=== PATIENT | male | born 1980 | race Caucasian/White ===

== ENCOUNTER 2023-03-12 00:50 | Day surgery (SDC) | payer BC, SELFPAY ==
--- NOTE | 2023-03-09 09:22 | SUR.PREOP ---
Patient called regarding upcoming procedure. Reviewed preop instructions, appointment times, and procedure prep.
[2023-03-12 09:05] VITALS: BP 117/87; PULSE 94; RESP 18; TEMP 36.5; O2SAT 99; BMI 30.4
[2023-03-12] MEDS: LACTATED RINGERS 1,000 ML 150 ML IV CONT (09:28)
--- NOTE | 2023-03-12 09:41 | WPDANESEPPF ---
Anes - Initial Pre Proc Eval Procedure: Operation Date: 03/12/23 10:00 Proposed Procedures p Colonoscopy - Ayo Regalado MD Date/Time: 03/12/23 09:41 Surgeon: Ayo Regalado MD Pre Op Diagnosis: diarrhea unspecified, hemorrhage of anus/rectum Patient Data Age: 43 Gender: M Height: 1.78 m Weight: 96.1 kg Last Vital Signs Temp 97.7 F 03/12/23 09:05 Pulse 94 03/12/23 09:05 Resp 18 03/12/23 09:05 BP 117/87 03/12/23 09:05 Pulse Ox 99 03/12/23 09:05 O2 Del Method Room Air 03/12/23 09:05 Allergies Allergy/AdvReac Type Severity Reaction Status Date / Time prochlorperazine Allergy Severe Anaphylaxis Verified 03/12/23 09:16 [From Compazine] Home Medications Medication Instructions Recorded Confirmed Type escitalopram oxalate 20 mg tablet 20 mg PO DAILY 01/22/23 03/12/23 History (Lexapro) naproxen sodium 220 mg capsule 220 mg PO BID PRN Pain (Scale 01/22/23 03/12/23 History (Aleve) Score 1-3) quetiapine 25 mg tablet (Seroquel) 25 mg PO QHS 01/22/23 03/12/23 History Patient hx anesthesia problems: none Family hx anesthesia problems: none Results Review: All pre-operative results and documents have been reviewed as part of the pre-operative evaluation. [facility] Past Medical History Medical History Bright red blood per rectum Diarrhea Tobacco use Social History Social History Smoking packs per day: 1 Smoking cigarettes per day: 20.0 Years smoked: 20 Smoking pack-years: 20.00 Smoking status: Current every day smoker Tobacco type: cigarettes Substance use: never Substance use type: does not use Living arrangements: alone Spiritual care concerns: No Anes - Eval Final PreProcedure Day of Procedure 03/12/23 09:41 Patient weight: obese Heart: regular rate and rhythm Lungs: clear to auscultation Airway: Mallampati scale class II Neurological: alert and oriented Last oral intake: >/= 8 hours ASA classification: II Emergent: no Anesthetic plan: proceed Anesthesia type and monitoring: general GIVS and standard monitoring Results Review: All pre-operative results and documents have been reviewed as part of the pre-operative evaluation. Informed Consent: The patient's anesthetic plan and its attendant risks and benefits were discussed with the patient/family/POA. Questions were solicited and answers provided to the satisfaction of the patient/family/POA.
--- NOTE | 2023-03-12 09:57 | PM.HPGS ---
History of Present Illness History of Present Illness Consent: Risks, benefits, and alternatives have been discussed and questions answered. Patient agrees to proceed with procedure. Chief complaint: diarrhea unspecified, hemorrhage of anus/rectum Narrative: Ranjeet Barboza is a 43 year old male with intermittent diarrhea for few years, he is not taking any medication. Had colonoscopy 2014 with ? colitis. Recent stool samples negative for infection, normal calprotectin. Review of Systems Constitutional: Constitutional: Denies headache(s) and Denies weakness Eyes: Eyes: Denies blurry vision ENT: Reports Normal hearing present, Denies headache(s) and Denies neck pain Cardiovascular: Cardiovascular: Denies chest pain and Denies dyspnea Respiratory: Respiratory: Denies dyspnea Gastrointestinal: Gastrointestinal: Reports no additional gastrointestinal complaints Genitourinary: Genitourinary: Denies dysuria Musculoskeletal: Musculoskeletal: Denies neck pain Integumentary/Breasts: Skin/Breast: Denies dry skin Neurologic: Reports Normal hearing present, Denies headache(s) and Denies weakness Psychiatric: Psychiatric: Denies anxiety Endocrine: Endocrine: Denies change in body appearance Hematologic/Lymphatic: Hematologic/Lymphatic: Denies easy bleeding Allergic/Immunologic: Allergic/Immunologic: Denies urticaria PMFSH Past Medical History Medical History Bright red blood per rectum Diarrhea Tobacco use Social History Social History Smoking packs per day: 1 Smoking cigarettes per day: 20.0 Years smoked: 20 Smoking pack-years: 20.00 Smoking status: Current every day smoker Tobacco type: cigarettes Substance use: never Substance use type: does not use Living arrangements: alone Spiritual care concerns: No Meds Home Medications and Allergies Home Medications Medication Instructions Recorded Confirmed Type escitalopram oxalate 20 mg tablet 20 mg PO DAILY 01/22/23 03/12/23 History (Lexapro) naproxen sodium 220 mg capsule 220 mg PO BID PRN Pain (Scale 01/22/23 03/12/23 History (Aleve) Score 1-3) quetiapine 25 mg tablet (Seroquel) 25 mg PO QHS 01/22/23 03/12/23 History Allergies Allergy/AdvReac Type Severity Reaction Status Date / Time prochlorperazine Allergy Severe Anaphylaxis Verified 03/12/23 09:16 [From Compazine] Vital Signs Vital Signs - 24 hr 03/12/23 09:05 Temperature 97.7 F Pulse Rate 94 Respiratory Rate 18 Blood Pressure 117/87 Pulse Oximetry 99 Oxygen Delivery Room Air Exam Const: General: comfortable and no acute distress HENMT: Face/Nose/Sinus: Normal nares present Eyes: General: appearance normal, both eyes and all related structures Neck: Neck: no JVD Resp: Auscultation: clear to auscultation bilaterally Cardio: Rate: regular rate Rhythm: regular rhythm GI: Inspection: non-distended GI Palp: Yes Soft to palpation Skin: General skin exam: normal color Neuro: General: gait normal Speech: normal speech Extrem: General: normal to inspection Psych: Mental Status: mental status grossly normal Assessment and Plan Assessment and plan (1) Diarrhea: Code(s): R19.7 - Diarrhea, unspecified Status: Acute Assessment and Plan: colonoscopy with biopsies
[2023-03-12 10:21] VITALS: BP 118/76; PULSE 93; RESP 17; O2SAT 99
[2023-03-12 10:31] VITALS: BP 140/95; PULSE 92; RESP 17; O2SAT 99
[2023-03-12 10:41] VITALS: BP 136/80; PULSE 90; RESP 17; O2SAT 99
== END 2023-03-12 10:45 | disposition home or self-care (01) ==
PROVIDERS: PCP Family Medicine; Visit Provider Internal Medicine Gastroenterology
PROC: 0DJD8ZZ Inspection of Lower Intestinal Tract, Via Natural or Artificial Opening Endoscopic (ICD-10-PCS; CPT 45378; principal; 2023-03-12 10:00)
DX: R19.7 Diarrhea, unspecified (principal); K64.8 Other hemorrhoids; F17.210 Nicotine dependence, cigarettes, uncomplicated; E66.9 Obesity, unspecified; Z68.30 Body mass index [BMI] 30.0-30.9, adult; Z79.1 Long term (current) use of non-steroidal anti-inflammatories (NSAID)
CPT/HCPCS: 45380; 88305; J2704; J7120